=== PATIENT | male | born 1990 | race Caucasian/White ===

== ENCOUNTER 2020-10-06 10:15 | Emergency (ER) | payer OTHER ==
[~2020-10-06] VITALS: Ht 180.3 cm; Wt 136.1 kg
[2020-10-06 10:20] VITALS: BP 130/92
--- NOTE | 2020-10-06 10:31 | NUR ---
30 Y/O MALE BIB SELF C/O LOWER BACK PAIN X 2 DAYS. PT STATES HE WAS SKATEBOARDING, FELL IN SITTING POSITION, DID NOT SEEK IMMEDIATE MEDICAL ATTENTION. PAIN 9/10, INTERMITTENT, LOCAL, "FEELS LIKE PINCHING". PT STATES DIFFICULTY AMBULATING, SITTING, REPOSITIONING COMFORTABLY. SKIN INTACT, NO OPEN WOUNDS SNOTED, NO DRAINAGE NOTED, SKIN NORMAL COLOR, NORMAL TEMEPRATURE. EARLY FORMATION OF ECCHYMOSIS NOTED ON RIGHT GLUT MAX. AO4, BREATHING EVEN AND UNLABORED, SKIN WARM AND DRY. BED IN LOWEST POSITION, LOCKED, X1 SIDERAIL UP. PMH - ASTHMA ALLERGY - SHELLFISH
[2020-10-06] MEDS ORDERED: KETOROLAC 30 MG/ML VIAL IM ONE (10:35)
[2020-10-06] MEDS ORDERED: HYDROcodone/APAP 10/325 MG 1 TAB TAB PO SCH (10:35)
[2020-10-06] MEDS ORDERED: CYCL-654 PO (11:23)
[2020-10-06 11:28] VITALS: BP 130/92
--- NOTE | 2020-10-06 11:29 | NUR ---
Patient discharged with v/s stable. Written and verbal after care instructions ABOUT LUMBAR STRAIN given and explained. Patient alert, oriented and verbalized understanding of instructions. Ambulatory with steady gait. All questions addressed prior to discharge. ID band removed. Patient advised to follow up with PMD. Rx of CYCLOBENZAPRINE given. Patient educated on indication of medication including possible reaction and side effects. Opportunity to ask questions provided and answered.
== END 2020-10-06 11:29 | disposition home or self-care (01) ==
LOC: MED 10:15
DX: S39.012A Strain of muscle, fascia and tendon of lower back, initial encounter (principal); Z91.013 Allergy to seafood; Z79.899 Other long term (current) drug therapy; X58.XXXA Exposure to other specified factors, initial encounter; Y93.89 Activity, other specified; Y92.89 Other specified places as the place of occurrence of the external cause; Y99.8 Other external cause status
CPT/HCPCS: 96372; 99283; J1885

== ENCOUNTER 2021-01-16 14:50 | Emergency (ER) | payer OTHER ==
[~2021-01-16] VITALS: Ht 180.3 cm; Wt 134.3 kg
[~2021-01-16 14:50] MED LIST: CYCL-654 PO
[2021-01-16 14:58] VITALS: BP 145/80
--- NOTE | 2021-01-16 15:31 | NUR ---
30 Y/O MALE C/O SORE THROAT 8/10 X3DAYS. CONGESTION, SOB, CHEST PAIN DESCRIBES PRESSURE/HEAVINESS 7/10 RADIATING TO UPPER BACK, APPETITE CHANGES, MYALGIA, SUBJECTIVE FEVER/CHILLS. PT DENIES N/V. DENIES PMH ALLERGIES: SHRIMP
[2021-01-16] MEDS ORDERED: ACETAMINOPHEN EXTRA STRENGTH 500 MG TAB PO ONE (15:45)
--- NOTE | 2021-01-16 15:45 | NUR ---
SARAH AREVALO AT BEDSIDE EXAMINING PT
--- NOTE | 2021-01-16 15:51 | NUR ---
XRAY AT BEDSIDE
--- NOTE | 2021-01-16 16:01 | NUR ---
RUDOLPH AND FLU SWABS COLLECTED AND SENT TO LAB WITH REGINA JOE
[2021-01-16] MEDS ORDERED: IBUP-2213 PO (16:38)
[2021-01-16] MEDS ORDERED: ALBU0.0912 IH (16:38)
[2021-01-16] MEDS ORDERED: [UNRECOGNIZED DRUG - CODE] PO (16:38)
[2021-01-16] MEDS ORDERED: PENI500T20 PO (16:52)
[2021-01-16 16:55] VITALS: BP 145/80
--- NOTE | 2021-01-16 16:55 | NUR ---
Patient discharged with v/s stable. Written and verbal after care instructions given and explained. Patient alert, oriented and verbalized understanding of instructions. Ambulatory with steady gait. All questions addressed prior to discharge. ID band removed. Patient advised to follow up with PMD. Rx of PROVENTIL HFA MDI, IBUPROFEN, LORATADINE/PSUEDOPHEDRINE, PENICILLIN given. Patient educated on indication of medication including possible reaction and side effects. Opportunity to ask questions provided and answered.
== END 2021-01-16 16:55 | disposition home or self-care (01) ==
LOC: MED 14:50
DX: J02.9 Acute pharyngitis, unspecified (principal); Z20.822 Contact with and (suspected) exposure to COVID-19; R06.02 Shortness of breath; J45.909 Unspecified asthma, uncomplicated; Z91.013 Allergy to seafood
CPT/HCPCS: 71045; 87804; 99284

== ENCOUNTER 2021-07-03 10:24 | Emergency (ER) | payer OTHER, SELFPAY ==
[~2021-07-03 10:24] MED LIST changes: +ALBU0.0912 IH; +IBUP-2213 PO; +PENI500T20 PO; +[UNRECOGNIZED DRUG - CODE] PO
--- NOTE | 2021-07-03 11:10 | NUR ---
PT CALLED IN TENT NO ANSWER.
--- NOTE | 2021-07-03 11:20 | NUR ---
PT CALLED IN TENT AND LOBBY SECOND TIME, NO ANSWER. MADE AWARE.
--- NOTE | 2021-07-03 11:36 | NUR ---
PT CALLED IN PHONE PT STATES "I LEFT I WILL GO BACK AT 4PM TODAY". MADE AWARE. PT LWBS.
--- NOTE | 2021-07-04 00:05 | NUR ---
seen and examined by JANNET
[2021-07-04] MEDS ORDERED: ROBAC PO (00:17)
--- NOTE | 2021-07-04 01:00 | NUR ---
Patient discharged with out written and verbal after care instructions .
== END 2021-07-03 11:36 | disposition left against medical advice (07) ==
LOC: MED 10:24
DX: R50.9 Fever, unspecified (principal); R07.89 Other chest pain; Z53.21 Procedure and treatment not carried out due to patient leaving prior to being seen by health care provider

== ENCOUNTER 2021-07-03 19:19 | Emergency (ER) | payer OTHER, SELFPAY ==
[~2021-07-03] VITALS: Ht 180.3 cm; Wt 133.8 kg
[2021-07-03 19:49] VITALS: BP 144/93
--- NOTE | 2021-07-03 19:52 | NUR ---
PT AMBULATED TO TENT WITH STEADY GAIT
[2021-07-04] MEDS ORDERED: ROBAC PO (00:17)
== END 2021-07-04 01:00 | disposition home or self-care (01) ==
LOC: MED 19:19
DX: J20.9 Acute bronchitis, unspecified (principal); R05.9 Cough, unspecified; R09.81 Nasal congestion; R50.9 Fever, unspecified; J45.909 Unspecified asthma, uncomplicated; F17.210 Nicotine dependence, cigarettes, uncomplicated; Z79.899 Other long term (current) drug therapy; Z91.013 Allergy to seafood
CPT/HCPCS: 71045; 99283